=== PATIENT | female | born 1985 | race Caucasian/White ===

== ENCOUNTER 2016-12-10 20:40 | Emergency (ER) | payer MEDICAID ==
[~2016-12-10] VITALS: Ht 157.5 cm; Wt 68.5 kg
[~2016-12-10 20:40] MED LIST: ACET-2178 PO; DIAZ2TAB PO; IBUP-1509 PO
[2016-12-11] MEDS ORDERED: SODIUM CHLORIDE 0.9% 1,000 ML IV ONE (00:12)
[2016-12-11 01:04] LABS: BASOPHILS % 0.7 % (0.0-2.0); EOSINOPHILS % 2.2 % (0.0-5.0); HEMATOCRIT. 30.6 % (36.0-48.0); HEMOGLOBIN. 10.6 g/dL (12.0-16.0); LYMPHOCYTES % 28.7 % (20.0-50.0); MEAN CORPUSCULAR HGB CONC 34.6 g/dL (31.0-37.0); MEAN CORPUSCULAR VOLUME 89.6 fL (81.0-99.0); MEAN PLATELET VOLUME 7.8 fl (7.4-10.4); MONOCYTES % 8.3 % (2.0-8.0); NEUTROPHILS % 60.1 % (40.0-76.0); PLATELET 229 x1000/uL (130-400); RED BLOOD CELL COUNT 3.42 mill/uL (4.2-5.4); RED CELL DISTRIBUTION WIDTH 13.5 % (11.6-14.6); WHITE BLOOD COUNT 8.4 x1000/uL (4.5-11.0)
[2016-12-11 01:06] LABS: CHLORIDE 107 mEq/L (98-107); INDEX HEMOLYSI 1 (1-3); INDEX ICTERIC 1 (1-4); INDEX LIPEMIC 1 (1-3)
[2016-12-11 01:15] LABS: CLARITY URINE TURBID (CLEAR); COLOR URINE RED (YELLOW); GLUCOSE URINE NEGATIVE (NEGATIVE); KETONES URINE NEGATIVE (NEGATIVE); LEUKOCYTE ESTERASE URINE 2+ (NEGATIVE); NITRITE URINE NEGATIVE (NEGATIVE); OCCULT BLOOD URINE 3+ (NEGATIVE); PH URINE 5.5 (4.5-8.0); PROTEIN URINE 1+ (NEGATIVE); SPECIFIC GRAVITY URINE 1.016 (1.005-1.030); UROBILINOGEN URINE 0.2 E.U./dL (0.2-1.0)
[2016-12-11] MEDS ORDERED: MORPHINE SULFATE 4 MG/ML CPJ (NOT FOR IM USE) IV ONE (01:15)
[2016-12-11 01:22] LABS: ANION GAP 12; CALCIUM 8.3 mg/dL (8.5-10.1); CARBON DIOXIDE 23 mEq/L (21-32); eGFR > 60 mL/min (>60)
[2016-12-11 01:30] LABS: B-HCG QUANTITATIVE 3027 mIU/mL (<3)
[2016-12-11 01:35] LABS: UREA NITROGEN BLOOD 4 mg/dL (7-21)
[2016-12-11 01:48] LABS: SQUAMOUS EPITHELIAL CELL URINE FEW /lpf (RARE/1+)
[2016-12-11 01:49] LABS: RBC URINE TNTC /hpf (0-2); WBC URINE 0-2 /hpf (0-2)
[2016-12-11 01:50] LABS: BACTERIA URINE NONE SEEN
[2016-12-11 05:01] VITALS: BP 138/81
== END 2016-12-11 05:01 | disposition home or self-care (01) ==
LOC: ER 20:40
DX: O02.1 Missed abortion (principal); R03.0 Elevated blood-pressure reading, without diagnosis of hypertension; R50.9 Fever, unspecified
CPT/HCPCS: 36415; 76801; 76817; 80048; 81001; 84702; 85025; 86850; 86900; 86901; 96361; 96374; 99285; J2270; J7030; Z7610

== ENCOUNTER 2016-12-11 06:39 | Emergency (ER) | payer MEDICAID ==
[~2016-12-11] VITALS: Ht 157.5 cm; Wt 68.5 kg
[2016-12-11] MEDS ORDERED: KETOROLAC 60MG/2ML VIAL IM ONE (09:45)
[2016-12-11] MEDS ORDERED: METHYLERGONOVINE MALEATE 0.2MG TABLET PO ONE (10:00)
[2016-12-11 10:37] LABS: CLARITY URINE CLEAR (CLEAR); COLOR URINE YELLOW (YELLOW); GLUCOSE URINE NEGATIVE (NEGATIVE); KETONES URINE NEGATIVE (NEGATIVE); LEUKOCYTE ESTERASE URINE 1+ (NEGATIVE); NITRITE URINE NEGATIVE (NEGATIVE); OCCULT BLOOD URINE 3+ (NEGATIVE); PH URINE 7.5 (4.5-8.0); PROTEIN URINE NEGATIVE (NEGATIVE); SPECIFIC GRAVITY URINE 1.008 (1.005-1.030); UROBILINOGEN URINE 0.2 E.U./dL (0.2-1.0)
[2016-12-11 10:53] LABS: WBC URINE 0-2 /hpf (0-2)
[2016-12-11 10:54] LABS: BACTERIA URINE 1+; SQUAMOUS EPITHELIAL CELL URINE RARE /lpf (RARE/1+)
[2016-12-11 11:18] LABS: HEMATOCRIT. 31.6 % (36.0-48.0); HEMOGLOBIN. 10.7 g/dL (12.0-16.0); MEAN CORPUSCULAR HEMOGLOBIN 30.3 pg (28.0-32.0); MEAN CORPUSCULAR HGB CONC 33.8 g/dL (31.0-37.0); MEAN CORPUSCULAR VOLUME 89.7 fL (81.0-99.0); PLATELET 209 x1000/uL (130-400); RED BLOOD CELL COUNT 3.52 mill/uL (4.2-5.4); RED CELL DISTRIBUTION WIDTH 13.1 % (11.6-14.6); WHITE BLOOD COUNT 5.4 x1000/uL (4.5-11.0)
[2016-12-11 11:32] LABS: HCG SCREEN POSITIVE
[2016-12-11 13:03] LABS: PLATELET ESTIMATE NORMAL
[2016-12-11 13:10] VITALS: BP 119/72
== END 2016-12-11 13:30 | disposition home or self-care (01) ==
LOC: ER 08:24
DX: O03.4 Incomplete spontaneous abortion without complication (principal)
CPT/HCPCS: 36415; 81001; 84703; 85007; 85027; 96372; 99284; J1885